=== PATIENT | male | born 1965 | race Caucasian/White ===

== ENCOUNTER 2022-10-27 08:26 | Day surgery (SDC) | payer BC ==
[2022-10-27] MEDS ORDERED: Propofol 200 MG/20 ML SDV IV ONE (08:27)
[2022-10-27] MEDS ORDERED: Sodium Chloride 0.9% 10 ML Syringe FLUSH PRN (08:30)
[2022-10-27] MEDS: Lactated Ringers 1,000 ML IV SCH (09:19)
[2022-10-27] MEDS: Simethicone Drops 40 MG/0.6 ML 30 ML Bottle PO ONE (09:54)
[2022-10-27 11:29] VITALS: BP 134/51; PULSE 88
== END 2022-10-27 11:05 | disposition home or self-care (01) ==
LOC: FB.SDS 08:26
PROVIDERS: ATTEND Surgery
DX: Z12.11 Encounter for screening for malignant neoplasm of colon (principal); K42.9 Umbilical hernia without obstruction or gangrene; I10 Essential (primary) hypertension; E78.5 Hyperlipidemia, unspecified; F32.A Depression, unspecified; Z79.82 Long term (current) use of aspirin; Z86.010 Personal history of colon polyps; Z80.0 Family history of malignant neoplasm of digestive organs; Z79.899 Other long term (current) drug therapy; Z79.84 Long term (current) use of oral hypoglycemic drugs; Z98.890 Other specified postprocedural states
CPT/HCPCS: 00812; A9270-GY; J2704; J7120

== ENCOUNTER 2023-12-22 17:33 | Emergency (ER) | payer BC ==
[2023-12-22] MEDS ORDERED: Lidocaine 1% 20 ML MDV INFILT ONE (17:34)
[2023-12-22 17:57] VITALS: BP 134/74; PULSE 82
[2023-12-22] MEDS: Bacitracin Oint 1 GM U/D Packet TOP ONE (18:55)
[2023-12-22] MEDS: Diphtheria,Pertussis(Acell),Tetanus Vaccine 0.5 ML Syringe IM ONE (18:56)
== END 2023-12-22 19:10 | disposition home or self-care (01) ==
LOC: FB.ED 17:33
DX: S51.812A Laceration without foreign body of left forearm, initial encounter (principal); S70.312A Abrasion, left thigh, initial encounter; Z23 Encounter for immunization; I10 Essential (primary) hypertension; E78.00 Pure hypercholesterolemia, unspecified; E66.9 Obesity, unspecified; Z68.38 Body mass index [BMI] 38.0-38.9, adult; Z79.82 Long term (current) use of aspirin; Z79.899 Other long term (current) drug therapy; W01.0XXA Fall on same level from slipping, tripping and stumbling without subsequent striking against object, initial encounter
CPT/HCPCS: 12002; 90471; 90715; 99282-25